=== PATIENT | female | born 1965 | race Caucasian/White ===

== ENCOUNTER 2016-04-16 13:07 | Emergency (ER) | payer OTHER ==
[~2016-04-16] VITALS: Ht 172.7 cm; Wt 57.2 kg
[~2016-04-16 13:07] MED LIST: 5-FU; AMOXICILLIN875 MG PO; ANTIVERT25 MG PO; ASPIRIN E.C.81 M1 PO; CARBATROL-ER300 MG PO; CIPRO500 MG PO; COMPAZINE10 MG PO; DILANTIN100 MG; DILANTIN100 MG PO; Dilantin PO; KEPPRA750 MG PO; LEVETIRACETAM750 MG PO; LOVENOX SC; MACROBID100 MG PO; MIRALAX17 GM PO; MOTRIN800 MG PO; PERCOCET 5/31 TABLET PO; PHENERGAN PO; PHENYTOIN SODI100 M1 PO; PROTONIX40 MG PO; PYRIDIUM100 MG PO; TEGRETOL-XR,CA200 MG PO; ULTRAM50 MG PO; Vicodin,Norco 5/325 PO; ZOFRAN4 MG PO; [UNRECOGNIZED DRUG - OTHER]; [UNRECOGNIZED DRUG - OTHER]; [UNRECOGNIZED DRUG - REMARK]
[2016-04-16 13:57] LABS: ADD MIUA? YES; BILIRUBIN NEGATIVE; BLOOD MODERATE; COLOR YELLOW ((YELLOW)); GLUCOSE (STRIP) NEGATIVE; KETONES NEGATIVE; LEUKOCYTES MODERATE; NITRITE NEGATIVE; PROTEIN (STRIP) NEGATIVE; UROBILINOGEN 0.2 MG/DL (0.2-1.0)
[2016-04-16 14:11] LABS: BACTERIA NONE SEEN /HPF; EPITHELIAL CELLS RARE /HPF; MUCUS TRACE /LPF; UCUL ADDED? NO; WHITE BLOOD CELLS 30-40 /HPF (0-5)
[2016-04-16] MEDS ORDERED: KEFLEX500 MG PO (14:43)
[2016-04-16] MEDS ORDERED: PYRIDIUM100 MG PO (14:43)
[2016-04-16 14:55] VITALS: BP 131/59
== END 2016-04-16 14:56 | disposition home or self-care (01) ==
LOC: EME 13:07 → EXP 13:07
DX: N39.0 Urinary tract infection, site not specified (principal); Z87.440 Personal history of urinary (tract) infections; K21.9 Gastro-esophageal reflux disease without esophagitis; R56.9 Unspecified convulsions; Z86.73 Personal history of transient ischemic attack (TIA), and cerebral infarction without residual deficits; Z85.43 Personal history of malignant neoplasm of ovary; Z85.038 Personal history of other malignant neoplasm of large intestine
CPT/HCPCS: 81003; 99281; 99284

== ENCOUNTER → 2016-05-01 | Outpatient (CLI) | payer OTHER ==
[~2016-05-01] MED LIST changes: +KEFLEX500 MG PO
== END | disposition home or self-care (01) ==
LOC: RAD 04-18 10:00
DX: C78.6 Secondary malignant neoplasm of retroperitoneum and peritoneum (principal)
CPT/HCPCS: 71260; 74177

== ENCOUNTER 2016-09-22 14:19 | Emergency (ER) | payer OTHER ==
[~2016-09-22] VITALS: Ht 172.7 cm; Wt 57.2 kg
[2016-09-22 15:24] LABS: HEMATOCRIT 40.9 % (36.0-46.0); MCH 30.3 PG (29.0-34.0); MCV 89.1 FL (83-99); MEAN PLAT.VOLUME 8.6 uM^3 (9.5-12.4); PLATELET COUNT 165 K/uL (156-360); RBC DIS.WIDTH-CV 12.6 % (11.8-14.6); RBC DIS.WIDTH-SD 41.1 % (39-53); RED BLOOD COUNT 4.59 M/uL (3.80-5.20); WHITE BLOOD COUNT 4.8 K/uL (4.1-10.2)
[2016-09-22 15:31] LABS: PROTHROMBIN TIME 11.1 SEC (10.2-12.9)
[2016-09-22 15:33] LABS: CHLORIDE 104 mEq/L (99-109); POTASSIUM 3.8 mEq/L (3.7-5.4); SODIUM 137 mEq/L (136-147)
[2016-09-22 15:36] LABS: GLUCOSE 93 mg/dL (70-99)
[2016-09-22 15:37] LABS: ANION GAP 10 MEQ/L (2-14)
[2016-09-22 15:38] LABS: TOTAL BILIRUBIN 0.3 mg/dL (0.0-1.0)
[2016-09-22 15:39] LABS: ALKALINE PHOSPHATASE 108 IU/L (3-129); GFR ESTIMATE (CALCULATED) > 59 mL/min/
[2016-09-22 15:40] LABS: UREA NITROGEN (BUN) 12 mg/dL (9-23)
[2016-09-22 15:42] LABS: CREATINE KINASE 86 IU/L (1-294)
[2016-09-22 18:25] VITALS: BP 134/70
== END 2016-09-22 18:26 | disposition home or self-care (01) ==
LOC: EME 14:19
PROVIDERS: Physician Assistant
DX: R42 Dizziness and giddiness (principal); R53.83 Other fatigue; S50.11XA Contusion of right forearm, initial encounter; S40.021A Contusion of right upper arm, initial encounter; S40.022A Contusion of left upper arm, initial encounter; W22.8XXA Striking against or struck by other objects, initial encounter; Y92.531 Health care provider office as the place of occurrence of the external cause; Z79.01 Long term (current) use of anticoagulants; G40.909 Epilepsy, unspecified, not intractable, without status epilepticus; E05.90 Thyrotoxicosis, unspecified without thyrotoxic crisis or storm; Z86.73 Personal history of transient ischemic attack (TIA), and cerebral infarction without residual deficits; Z85.43 Personal history of malignant neoplasm of ovary; Z85.038 Personal history of other malignant neoplasm of large intestine
CPT/HCPCS: 70450; 80053; 82550; 84443; 85027; 85610; 99281; 99284

== ENCOUNTER → 2016-11-13 | Outpatient (CLI) | payer OTHER | END | disposition home or self-care (01) | LOC: RAD 08:27 | DX: J98.11 Atelectasis (principal); R91.1 Solitary pulmonary nodule; K59.00 Constipation, unspecified; C18.7 Malignant neoplasm of sigmoid colon | CPT/HCPCS: 71260; 74177 ==

== ENCOUNTER 2017-02-19 12:15 | Emergency (ER) | payer OTHER ==
[~2017-02-19] VITALS: Ht 172.7 cm; Wt 59.1 kg
[2017-02-19 13:08] VITALS: BP 131/61
[2017-02-19] MEDS ORDERED: ZONEGRAN100 MG PO (13:41)
[2017-02-19] MEDS ORDERED: ASPIRIN81 M2 PO (13:42)
[2017-02-19] MEDS ORDERED: METHIMAZOLE5 MG PO (13:42)
[2017-02-19] MEDS ORDERED: CLONAZEPAM0.5 MG PO (13:42)
[2017-02-19] MEDS ORDERED: MIRALAX17 GM PO (13:43)
[2017-02-19] MEDS ORDERED: BIOTIN2500 MCG PO (13:43)
[2017-02-19] MEDS ORDERED: ERGOCALCIF50000 UNIT PO (13:43)
== END 2017-02-19 15:00 | disposition home or self-care (01) ==
LOC: EME 12:15
PROVIDERS: Nurse Practitioner Family
DX: J02.9 Acute pharyngitis, unspecified (principal); Z86.73 Personal history of transient ischemic attack (TIA), and cerebral infarction without residual deficits; Z85.43 Personal history of malignant neoplasm of ovary; Z85.038 Personal history of other malignant neoplasm of large intestine
CPT/HCPCS: 87502; 87651 90; 99281; 99283

== ENCOUNTER → 2017-05-21 | Outpatient (CLI) | payer OTHER ==
[~2017-05-21] MED LIST changes: +ASPIRIN81 M2 PO; +BIOTIN2500 MCG PO; +CLONAZEPAM0.5 MG PO; +ERGOCALCIF50000 UNIT PO; +METHIMAZOLE5 MG PO; +ZONEGRAN100 MG PO
== END | disposition home or self-care (01) ==
LOC: RAD 08:50
DX: C78.6 Secondary malignant neoplasm of retroperitoneum and peritoneum (principal)
CPT/HCPCS: 71260; 74177

== ENCOUNTER 2017-08-06 16:56 | Emergency (ER) | payer OTHER ==
[~2017-08-06] VITALS: Ht 172.7 cm; Wt 56.6 kg
[2017-08-06 17:57] LABS: HEMATOCRIT 40.5 % (36.0-46.0); HEMOGLOBIN 14.3 G/DL (11.9-15.5); MCH 31.3 PG (29.0-34.0); MCHC 35.3 G/DL (30.0-36.0); MCV 88.6 FL (83-99); PLATELET COUNT 174 K/uL (156-360); RBC DIS.WIDTH-CV 12.2 % (11.8-14.6); RBC DIS.WIDTH-SD 39.8 % (39-53); RED BLOOD COUNT 4.57 M/uL (3.80-5.20); WHITE BLOOD COUNT 5.3 K/uL (4.1-10.2)
[2017-08-06 18:05] LABS: ALBUMIN 4.7 g/dL (3.2-4.8)
[2017-08-06 18:06] LABS: CHLORIDE 104 mEq/L (99-109); POTASSIUM 3.5 mEq/L (3.7-5.4); SODIUM 141 mEq/L (136-147)
[2017-08-06 18:08] LABS: GLUCOSE 110 mg/dL (70-99); TOTAL PROTEIN 7.8 g/dL (6.4-8.3)
[2017-08-06 18:10] LABS: TOTAL BILIRUBIN 0.3 mg/dL (0.0-1.0)
[2017-08-06 18:11] LABS: ALKALINE PHOSPHATASE 134 IU/L (3-129)
[2017-08-06 18:11] LABS: APPEARANCE CLEAR ((CLEAR)); BILIRUBIN NEGATIVE; BLOOD NEGATIVE; COLOR STRAW ((YELLOW)); GLUCOSE (STRIP) NEGATIVE; KETONES NEGATIVE; LEUKOCYTES NEGATIVE; NITRITE NEGATIVE; PROTEIN (STRIP) NEGATIVE; SPECIFIC GRAVITY 1.004 (1.000-1.030); UCUL ADDED? NO; UROBILINOGEN 0.2 MG/DL (0.2-1.0)
[2017-08-06 18:12] LABS: CREATININE 0.7 mg/dL (0.6-1.3); GFR ESTIMATE (CALCULATED) > 59 mL/min/
[2017-08-06 18:13] LABS: AST (GOT) 24 IU/L (2-34); UREA NITROGEN (BUN) 8 mg/dL (9-23)
[2017-08-06 18:14] LABS: ALT (GPT) 13 IU/L (3-49)
[2017-08-06 18:23] LABS: QUANTITATIVE HCG < 4.0 MIU/ML
[2017-08-06 20:46] VITALS: BP 136/88
== END 2017-08-06 20:46 | disposition home or self-care (01) ==
LOC: EME 16:56
DX: K59.00 Constipation, unspecified (principal); K21.9 Gastro-esophageal reflux disease without esophagitis; Z79.82 Long term (current) use of aspirin; Z86.73 Personal history of transient ischemic attack (TIA), and cerebral infarction without residual deficits; Z92.21 Personal history of antineoplastic chemotherapy; Z85.038 Personal history of other malignant neoplasm of large intestine; Z85.43 Personal history of malignant neoplasm of ovary; Z90.49 Acquired absence of other specified parts of digestive tract; Z90.710 Acquired absence of both cervix and uterus
CPT/HCPCS: 80053; 81003; 84702; 85027; 99281; 99284